=== PATIENT | female | born 1940 | race Caucasian/White ===

== ENCOUNTER 2017-01-12 10:21 | Emergency (ER) | payer MEDICARE ==
[~2017-01-12 10:21] MED LIST: ACIDOPHILUS1 CAP PO; CALCIUM 600+D1 EAC1 PO; CIPRO500 M2 PO; COCONUT OIL1000 M1 PO; CORAL CALCIUM1 EAC3 PO; DIGESTIVE ENZYM1 TAB PO; GLUCOSAMINE 1,1 EACH PO; IRON1 TA1 PO; METOPROLOL SUCC25 M1 PO; MULTIVITAMIN1 TAB PO; PROTONIX40 M2 PO; VITAMIN C PO; VITAMIN E400 UNI1 PO; VITAMINS; XARELTO20 M1 PO; [UNRECOGNIZED DRUG - CODE] PO; [UNRECOGNIZED DRUG - OTHER] PO; [UNRECOGNIZED DRUG - OTHER] PO
== END 2017-01-12 12:15 ==
LOC: EDMED 10:21
DX: M54.41 Lumbago with sciatica, right side (principal); K21.9 Gastro-esophageal reflux disease without esophagitis; I48.91 Unspecified atrial fibrillation; Z90.49 Acquired absence of other specified parts of digestive tract; Z90.710 Acquired absence of both cervix and uterus; Z98.51 Tubal ligation status

== ENCOUNTER 2017-02-17 09:34 | Emergency (ER) | payer MEDICARE ==
[2017-02-17 11:46] LABS: URINE BILIRUBIN NEGATIVE (NEG); URINE BLOOD NEGATIVE (NEG); URINE GLUCOSE (UA) NEGATIVE (NEG); URINE KETONE NEGATIVE (NEG); URINE LEUKOCYTE ESTERASE NEGATIVE (NEG); URINE NITRITE NEGATIVE (NEG); URINE PROTEIN NEGATIVE (NEG)
[2017-02-17 11:50] LABS: BASO % 0.3 % (0-2); EOS % 0.7 % (0-7); EOSINOPHIL ABSOLUTE COUNT 0.1 tho/cmm (0.0-0.7); HCT-HEMATOCRIT 35.8 % (34.0-49.0); HGB-HEMOGLOBIN 12.4 gm/dl (12.0-15.5); IMMATURE GRANULOCYTES ABSOLUTE 0.01 tho/cmm (0-0.03); IMMATURE GRANULOCYTES PERCENT 0.1 % (0-0.3); LYMPH % 12.4 % (20-45); LYMPH ABSOLUTE COUNT 0.9 tho/cmm (0.8-4.5); MCHC MEAN CORPUSCULAR HGB CONC 34.6 % (32.0-36.0); MCV (MEAN CELL VOLUME) 92.3 fl (82.0-96.0); MONO % 11.1 % (0-12); MONOCYTE ABSOLUTE COUNT 0.8 tho/cmm (0.0-1.2); NEUTROPHIL ABSOLUTE COUNT 5.2 tho/cmm (1.6-8.0); NEUTROPHIL-AUTOMATED 5.2 tho/cmm (1.6-8.0); NEUTROPHILS % 75.4 % (40-80); PLATELET COUNT 223 tho/cmm (150-450); RED BLOOD COUNT 3.88 mil/cmm (4.00-5.20); RED CELL DISTRIBUTION WIDTH 13.5 % (12.4-16.4); WHITE BLOOD COUNT 6.9 tho/cmm (4.0-10.0)
[2017-02-17 11:51] LABS: URINE APPEARANCE CLEAR; URINE COLOR YELLOW
[2017-02-17 12:14] LABS: ALB/GLOB RATIO 1.2 (0.8-2.0); ALBUMIN 3.9 g/dl (3.5-5.0); ALKALINE PHOSPHATASE 85 U/L (33-138); ALT/SGPT 33 U/L (12-78); BILIRUBIN,TOTAL 0.9 mg/dl (0-1.5); BLOOD UREA NITROGEN 11 mg/dl (6-24); C-REACTIVE PROTEIN 2.7 mg/dl (0-0.9); CALCIUM 8.6 mg/dl (8.5-10.5); CARBON DIOXIDE-VENOUS 24 mmol/L (22-32); CHLORIDE 97 mmol/l (96-110); CREATININE 0.54 mg/dl (0.50-1.10); GLUCOSE 84 mg/dL (70-110); PHOSPHOROUS 3.4 mg/dl (2.5-4.9); SODIUM 131 mmol/L (135-145); eGFR VALUE FOR BLACK >90 mL/Min
[2017-02-17 12:20] LABS: ANION GAP 14 mmol/L (0-20); AST/SGOT 29 U/L (10-40); MAGNESIUM 2.3 mg/dl (1.8-2.6); POTASSIUM 3.8 mmol/L (3.7-5.1)
[2017-02-17] MEDS ORDERED: ULTRAM50 M1 PO (13:21)
[2017-02-17 13:43] LABS: ESR-ERYTHROCYTE SED RATE 60 mm/hr (0-30)
== END 2017-02-17 13:34 ==
LOC: EDMED 09:34
PROVIDERS: Nurse Practitioner Family
DX: M25.532 Pain in left wrist (principal); M25.531 Pain in right wrist; M25.552 Pain in left hip; M25.551 Pain in right hip; M25.562 Pain in left knee; M25.561 Pain in right knee; M17.12 Unilateral primary osteoarthritis, left knee; M81.0 Age-related osteoporosis without current pathological fracture

== ENCOUNTER 2017-02-21 02:25 | Emergency (ER) | payer MEDICARE ==
[~2017-02-21 02:25] MED LIST changes: +ULTRAM50 M1 PO
[2017-02-21] MEDS ORDERED: TRAMADOL HCL50 M2 PO (03:09)
== END 2017-02-21 03:48 ==
LOC: EDMED 02:25
DX: M54.5 Low back pain (principal); T50.905A Adverse effect of unspecified drugs, medicaments and biological substances, initial encounter; M19.90 Unspecified osteoarthritis, unspecified site; Z79.899 Other long term (current) drug therapy